=== PATIENT | female | born 1980 | race Caucasian/White ===

== ENCOUNTER 2016-08-23 07:59 | Inpatient (IN) | payer BC ==
--- NOTE | ~2016-08-23 | OR ---
Unit #: [id number] #: [id number] Patient: MANAN SUMNER [id number] [address] [place], [place] [address] [id number] MR#: [id number] NAME: MANAN SUMNER ROOM: [facility] Date of Procedure: 08/23/2016 Admission Date: 08/23/2016 Surgeon: Steven Walker Jr., M.D. : 1980 Attending Physician: Steven Walker Jr., M.D. Primary Care Physician: Estelle Rankin M.D. OPERATIVE REPORT INDICATION FOR OPERATION The patient is a 36-year-old white female with high-grade stenosis of the distal ileum secondary to active Crohn disease. She has been treated medically with intensive medical approaches, but has not responded well to this. It was felt she needed this area resected by GI Medicine. She was brought in this time at her request for resection of the ileocolic segment of the bowel. She understands the procedure including the risks, including that of infection, anastomotic leakage, bleeding and recurrence of her Crohn's and consents. PREOPERATIVE DIAGNOSES Stricture of the distal ileum with active Crohn disease. POSTOPERATIVE DIAGNOSES Stricture of the distal ileum with active Crohn disease, noting fat wrapping of the distal ileum, but no major involvement of the cecum. The appendix was small and retrocecal. ANESTHESIA General with endotracheal intubation. INTERVENTIONAL TECHNOLOGIST Dr. Parker. PROCEDURE PERFORMED Exploratory laparotomy, ileocecal resection with [id number] anastomosis between the distal ileum and ascending colon. DESCRIPTION OF PROCEDURE The patient was positioned in supine position. After being anesthetized and intubated, she was prepped and draped in routine fashion for exploratory laparotomy through a small lower midline incision. Approximately 5-inch incision was made in the lower midline. This was carried down through the subcutaneous tissue down through the linea alba of the peritoneal cavity. Upon opening of the peritoneal cavity, there was no free intra-abdominal fluid. Minor incision was opened with cutting edge of the Bovie cautery. Intra-abdominal exploration was carried out. The patient was noted to have no evidence of any ascitic fluid, but there was an obvious fat-wrapping of the distal ileum with firmness representing her area of stenosis. This segment was approximately 12 to 14 inches in length. The cecum itself did not appear to contain any Crohn, but the appendix was retrocecal and required mobilization along with the cecum. Unit #: [id number] #: [id number] Patient: MANAN SUMNER The distal ileum above the area of gross disease was then stapled and divided with ROBB stapling device and the ascending colon was stapled and divided with ROBB stapling device. Mesenteric vessels were clamped, divided, and ligated with 0 silk sutures. The specimen was removed and sent to pathology. The distal ileum was then brought up and anastomosed side to side with the ROBB anastomosing device to the ascending colon. The anastomosis was widely patent. The remaining opening was closed with a TA 60 stapler using 3.5 mm dileep. The staple line was oversewn with interrupted 3-0 silk sutures. The mesenteric defect was closed with interrupted 2-0 silk sutures. The abdomen was copiously irrigated with saline solution and after adequate hemostasis was noted, the midline was closed with interrupted #1 Vicryl suture single fascial layer closure. Subcutaneous tissue was irrigated and after hemostasis achieved with Bovie cautery, skin edges were approximated with stainless-steel skin clips with skin stapling device. The sterile dressings were applied externally. Estimated blood loss less than 100 mL. The patient received less than 2000 mL crystalloid solution during the procedure. Sponges and instrument counts were correct x3. No drains used. No complications. The patient was taken to the recovery room with stable vital signs in satisfactory condition. Dictated by... Steven Walker Jr., M.Navarro OLIVA/devan TD: 08/24/2016 06:33 JOB #: [id number] OPERATIVE REPORT X Steven Walker MD X PROCEDURE OPERATIVE NOTE
--- NOTE | ~2016-08-23 | DS ---
Unit #: [id number] #: [id number] Patient: MANAN SUMNER [id number] [address] [address] [id number] MR#: [id number] NAME: MANAN SUMNER ROOM: [facility] Age: 36 Sex: F Admission Date: 08/23/2016 : 1980 Discharge Date: 08/26/2016 Attending Physician: Steven Walker Jr., M.D. Primary Care Physician: Estelle Rankin M.D. DISCHARGE SUMMARY PRIMARY REASON FOR ADMISSION Ileocolic resection. HISTORY OF PRESENT ILLNESS The patient is a 36-year-old woman with high-grade stenosis of her distal ileum secondary to active Crohn disease. She has been treated with medical approaches, but has not responded. She presents to the hospital on the day of admission for surgical resection and anastomosis. PHYSICAL EXAMINATION See admission H and P. HOSPITAL COURSE The patient was admitted, brought to the operating room for exploratory laparotomy with ileocecal resection and [id number]-cd-lgrm anastomosis, which she tolerated procedure well. Over the next several days, she had a slow return of bowel function. She was advanced to regular diet, having bowel movements. She is deemed ready for discharge home on 08/26/2016. DISPOSITION Home. CONDITION Good. FOLLOWUP The patient will follow up in the office in 2 weeks. We will discharge her with Percocet. Dictated by... Tamela Velasco/devan TD: 08/29/2016 03:52 JOB #: [id number] Unit #: [id number] #: [id number] Patient: MANAN SUMNER DISCHARGE SUMMARY X Michael Deleon X DISCHARGE SUMMARY
[~2016-08-23 07:59] MED LIST: AZATHIOPRINE50 M2 PO; LOMOTIL TABLET1 TAB; LORTAB 7.5-5001 TAB PO; NO MEDICATIONS; PANTOPRAZOLE SO40 MG; PREDNISONE PO; UCERIS9 MG PO; [UNRECOGNIZED DRUG - OTHER]
[2016-08-23 08:54] LABS: BASOPHIL# 0.1 X10e3 (0-0.3); BASOPHIL% 1.2 % (0-2.5); EOSINOPHIL# 0.2 X10e3 (0-0.7); HEMOGLOBIN 13.5 gm/dL (12.0-16.0); LYMPHOCYTE# 1.3 X10e3 (1.0-3.5); MEAN CELL VOLUME 89.3 FL (83-96); MEAN CORPUSCULAR HEMOGLOBIN 30.1 PG (28-34); MEAN CORPUSCULAR HGB CONC 33.7 g/dL (30-36); MEAN PLATELET VOLUME 8.4 FL (6.5-11.5); MONOCYTE# 0.4 X10e3 (0-1.0); MONOCYTE% 7.3 % (3.0-12.0); NEUTROPHIL# 3.7 X10e3 (1.5-7.1); NEUTROPHIL% 64.5 % (40-75); PLATELET COUNT 224 X10e3 (140-420); RED BLOOD COUNT 4.48 X10e (3.90-5.30); RED CELL DISTRIBUTION WIDTH 13.3 % (11.0-15.5); WHITE BLOOD COUNT 5.7 X10e3 (4.0-10.5)
[2016-08-23 08:59] LABS: DIFF IND NO
[2016-08-24 03:56] LABS: BASOPHIL% 0.2 % (0-2.5); HEMATOCRIT 38.3 % (35.0-45.0); LYMPHOCYTE# 0.7 X10e3 (1.0-3.5); LYMPHOCYTE% 4.2 % (17.0-45.0); MEAN CELL VOLUME 88.9 FL (83-96); MEAN CORPUSCULAR HEMOGLOBIN 30.1 PG (28-34); MEAN CORPUSCULAR HGB CONC 33.9 g/dL (30-36); MEAN PLATELET VOLUME 8.4 FL (6.5-11.5); MONOCYTE% 5.6 % (3.0-12.0); PLATELET COUNT 272 X10e3 (140-420); RED BLOOD COUNT 4.31 X10e (3.90-5.30); RED CELL DISTRIBUTION WIDTH 13.2 % (11.0-15.5)
[2016-08-24 04:13] LABS: DIFF IND YES; WHITE BLOOD COUNT 17.7 X10e3 (4.0-10.5)
[2016-08-24 04:18] LABS: ALBUMIN SERUM 3.4 g/dL (3.5-5.0); ALKALINE PHOSPHATASE 40 U/L (32-92); ALT (SGPT) 10 U/L (10-40); AST (SGOT) 14 U/L (10-42); BILIRUBIN,TOTAL 0.3 mg/dL (0.2-2.0); BLOOD UREA NITROGEN 6 mg/dL (9-23); BUN/CREATININE RATIO 8.57; CALCIUM SERUM 7.9 mg/dL (8.4-10.2); CARBON DIOXIDE 24 mmol/L (22-31); CHLORIDE 104 mmol/L (100-111); CREATININE SERUM 0.7 mg/dL (0.6-1.4); GLOM FILT RATE Estimated ABOVE60 mL/min (>60); GLUCOSE FASTING 152 mg/dL (70-110); PLATELET ESTIMATE NORMAL (NORMAL); POTASSIUM 4.2 mmol/L (3.5-5.1); PROTEIN TOTAL SERUM 5.9 g/dL (6.0-8.3); RBC NORMAL YES; SODIUM 134 mmol/L (135-145)
[2016-08-25 03:34] LABS: HEMOGLOBIN 11.7 gm/dL (12.0-16.0); MEAN CELL VOLUME 89.7 FL (83-96); MEAN CORPUSCULAR HGB CONC 33.4 g/dL (30-36); MEAN PLATELET VOLUME 8.4 FL (6.5-11.5); RED BLOOD COUNT 3.91 X10e (3.90-5.30); RED CELL DISTRIBUTION WIDTH 13.5 % (11.0-15.5); WHITE BLOOD COUNT 9.3 X10e3 (4.0-10.5)
[2016-08-25 03:59] LABS: BLOOD UREA NITROGEN <5 mg/dL (9-23); BUN/CREATININE RATIO 8.33; CALCIUM SERUM 8.1 mg/dL (8.4-10.2); CARBON DIOXIDE 27 mmol/L (22-31); CHLORIDE 106 mmol/L (100-111); CREATININE SERUM 0.6 mg/dL (0.6-1.4); GLOM FILT RATE Estimated ABOVE60 mL/min (>60); GLUCOSE FASTING 108 mg/dL (70-110); POTASSIUM 4.2 mmol/L (3.5-5.1); SODIUM 135 mmol/L (135-145)
[2016-08-26 02:58] LABS: HEMATOCRIT 31.5 % (35.0-45.0); HEMOGLOBIN 10.6 gm/dL (12.0-16.0); MEAN CELL VOLUME 89.6 FL (83-96); MEAN CORPUSCULAR HEMOGLOBIN 30.2 PG (28-34); MEAN CORPUSCULAR HGB CONC 33.7 g/dL (30-36); MEAN PLATELET VOLUME 8.3 FL (6.5-11.5); RED BLOOD COUNT 3.51 X10e (3.90-5.30); RED CELL DISTRIBUTION WIDTH 13.5 % (11.0-15.5); WHITE BLOOD COUNT 7.1 X10e3 (4.0-10.5)
[2016-08-26 03:47] LABS: BLOOD UREA NITROGEN 5 mg/dL (9-23); BUN/CREATININE RATIO 8.33; CALCIUM SERUM 8.3 mg/dL (8.4-10.2); CARBON DIOXIDE 30 mmol/L (22-31); CHLORIDE 100 mmol/L (100-111); CREATININE SERUM 0.6 mg/dL (0.6-1.4); GLOM FILT RATE Estimated ABOVE60 mL/min (>60); GLUCOSE FASTING 104 mg/dL (70-110); POTASSIUM 4.2 mmol/L (3.5-5.1); SODIUM 136 mmol/L (135-145)
[2016-08-26] MEDS ORDERED: PERCOCET 7.5/321 TAB PO (07:27)
== END 2016-08-26 12:15 | disposition home or self-care (01) | DRG 330 ==
LOC: CSUR 07:59 → CPACUOF 12:00 → C4B 13:26
PROVIDERS: Surgery
PROC: 0DTH0ZZ Resection of Cecum, Open Approach (ICD-10-PCS; 2016-08-23)
PROC: 0DBB0ZZ Excision of Ileum, Open Approach (ICD-10-PCS; principal; 2016-08-23 10:00)
DX: K50.012 Crohn's disease of small intestine with intestinal obstruction (principal); N39.0 Urinary tract infection, site not specified; N93.9 Abnormal uterine and vaginal bleeding, unspecified; R30.0 Dysuria; F17.210 Nicotine dependence, cigarettes, uncomplicated
CPT/HCPCS: 80048; 80053; 84703; 85025; 85027; 88307; 88312; J0330; J1170; J1650; J2250; J2270; J2405; J2550; J2710; J3010